=== PATIENT | male | born 1965 | race Two or more races ===

== ENCOUNTER 2019-07-29 13:46 | Outpatient (CLI) | payer MEDICAID ==
[~2019-07-29] VITALS: Ht 170.2 cm; Wt 75.7 kg
[2019-07-29 14:27] VITALS: BP 122/84
[2019-07-29] MEDS ORDERED: BIKTARVY 50-201 EACH PO (14:27)
--- NOTE | 2019-07-29 23:00 | Consultation ---
DATE OF CONSULTATION: 07/29/2019 CONSULTING PHYSICIAN: Mike Dahl MD. CHIEF COMPLAINT: Referral for stool OB positive. PAST MEDICAL HISTORY: HIV. PAST SURGICAL HISTORY: Appendectomy. MEDICATIONS: HIV medications. FAMILY HISTORY: Father had cancer, he does not know what kind. Mother had thyroid cancer. SOCIAL HISTORY: The patient denies any alcohol usage. He used to smoke, but quit many years ago. Denies any drug usage. ALLERGIES: To fish, pork, and egg. REVIEW OF SYSTEMS: Negative. PHYSICAL EXAMINATION: VITAL SIGNS: Temperature 97.9, blood pressure 122/84, pulse is 72, respirations 20. HEENT: Normocephalic and atraumatic. Sclerae anicteric. NECK: Supple. No evidence of obvious lymphadenopathy. CARDIOVASCULAR: Regular rhythm. Plus S1, S2. LUNGS: Clear to auscultation bilaterally. ABDOMEN: Positive bowel sounds. Soft and nontender. No rebound. No guarding. No peritoneal sign. EXTREMITIES: No cyanosis. No clubbing. No edema. ASSESSMENT AND PLAN: This is a 54-year-old male with FIT test positive. Plan to do endoscopy and colonoscopy. The patient was given instruction for both. Risks and benefits of procedures were explained to him. We are going to schedule him when authorization is obtained. Mike Dahl M.D. DR: Yamilex JOB#: [id number] CC:
== END 2019-07-29 15:57 | disposition home or self-care (01) ==
LOC: PAN 13:46
DX: K92.1 Melena (principal); Z90.89 Acquired absence of other organs; B20 Human immunodeficiency virus [HIV] disease; Z91.012 Allergy to eggs; Z91.013 Allergy to seafood; Z91.018 Allergy to other foods
CPT/HCPCS: G0463

== ENCOUNTER 2019-09-24 11:55 | Outpatient (CLI) | payer MEDICAID ==
[~2019-09-24 11:55] MED LIST: BIKTARVY 50-201 EACH PO
--- NOTE | 2019-09-24 17:00 | Progress Note ---
DATE: 09/24/2019 SUBJECTIVE: No events. The patient had endoscopy and colonoscopy. Here for followup. OBJECTIVE: VITAL SIGNS: Stable. HEENT: Normocephalic, atraumatic. Sclerae anicteric. NECK: Supple. No evidence of obvious lymphadenopathy. CARDIOVASCULAR: Regular rate and rhythm. Plus S1 and S2. LUNGS: Clear to auscultation bilaterally. ABDOMEN: Positive bowel sounds. Soft and nontender. No rebound. No guarding. No peritoneal sign. EXTREMITIES: No cyanosis. No clubbing. No edema. ASSESSMENT AND PLAN: Patient had endoscopy and colonoscopy done on 09/10/2019. Endoscopy showed gastritis. There was one polyp in the stomach, which was removed. Patient had evidence of diverticulosis in the left colon and internal hemorrhoids. The biopsy showed H. pylori positive gastritis. The patient was given treatment for H. pylori with amoxicillin and clindamycin combo. The patient was told to come back in 3 months for blood test or stool test to see if the bacteria has been eradicated. Otherwise repeat colonoscopy in 1 year. Mike Dahl M.D. DR: NARGIS JOB#: [id number] CC:
== END 2019-09-24 15:42 | disposition home or self-care (01) ==
LOC: PAN 11:55
DX: K29.70 Gastritis, unspecified, without bleeding (principal); K63.5 Polyp of colon; B96.81 Helicobacter pylori [H. pylori] as the cause of diseases classified elsewhere
CPT/HCPCS: 99212